=== PATIENT | female | born 1990 | race Caucasian/White ===

== ENCOUNTER 2019-11-24 08:35 | Observation (INO) | payer MEDICARE, OTHER ==
[~2019-11-24] VITALS: Ht 170.2 cm; Wt 65.8 kg
[~2019-11-24 08:35] MED LIST: CYCL10 PO; Ultram50 MG PO; Valium5 MG PO
[2019-11-24 09:44] LABS: BASOPHILS ABSOLUTE AUTO 0.02 K/mm3 (0.00-0.23); BASOPHILS PERCENT AUTO 0 % (0-2); EOSINOPHILS ABSOLUTE AUTO 0.01 K/mm3 (0.00-0.68); EOSINOPHILS PERCENT AUTO 0 % (0-6); Hematocrit 41.1 % (33.0-51.0); Hemoglobin 14.3 g/dL (11.5-16.0); IMMATURE GRAN ABSOLUTE AUTO 0.04 K/mm3 (0.00-0.10); IMMATURE GRAN PERCENT AUTO 0 % (0-1); LYMPHOCYTES ABSOLUTE AUTO 2.49 K/mm3 (0.84-5.20); LYMPHOCYTES PERCENT AUTO 16 % (21-46); MONOCYTES PERCENT AUTO 9 % (4-13); Mean Corpuscular HGB 30.1 pg (26.0-34.0); Mean Corpuscular HGB Conc 34.8 g/dL (31.5-36.5); Mean Corpuscular Volume 87 fL (80-100); Mean Platelet Volume 10.3 fL (9.1-12.4); NEUTROPHILS ABSOLUTE AUTO 11.31 K/mm3 (1.96-9.15); NEUTROPHILS PERCENT AUTO 75 % (41-73); Platelet Count 273 K/mm3 (150-400); RDW Coefficient Variation 12.3 % (11.7-14.2); RDW Standard Deviation 38.9 fL (35.1-46.3); Red Blood Cell Count 4.75 M/mm3 (3.80-5.20); White Blood Cell Count 15.17 K/mm3 (4.00-11.30)
[2019-11-24 10:07] LABS: Acetaminophen, Random <2.0 ug/mL (10.0-30.0); Alanine Aminotransfer (ALT/SGP 44 U/L (12-78); Albumin, Blood 4.4 g/dL (3.4-5.0); Albumin/Globulin Ratio 1.1 (0.8-1.8); Anion Gap 10 mmol/L (6-16); Aspartate Aminotrans (AST/SGOT 141 U/L (12-37); Bilirubin, Total 0.8 mg/dL (0.1-1.0); Blood Urea Nitrogen 9 mg/dL (8-24); Bun/Creatinine Ratio 14.6 (12.0-20.0); CO2, Blood 20 mmol/L (21-32); Calcium, Blood 8.7 mg/dL (8.5-10.1); Chloride, Blood 107 mmol/L (98-108); Creatinine, Blood 0.62 mg/dL (0.40-1.00); Ethanol (Alcohol), Blood, Med <3 mg/dL; Globulin, Blood 3.9 g/dL (2.2-4.0); Glomerular Filtration Rate >60 (60-); Glucose, Blood 80 mg/dL (70-99); Potassium, Blood 3.7 mmol/L (3.5-5.5); Salicylate 3.1 mg/dL (2.8-20.0); Sodium, Blood 137 mmol/L (136-145); Thyroxine (T4) 14.7 ug/dL (4.8-13.9); Total Protein, Blood 8.3 g/dL (6.4-8.2)
[2019-11-24 10:11] LABS: Alk Phos 65 U/L (50-136)
[2019-11-25] MEDS ORDERED: OLAN10 PO (05:56)
[2019-11-25] MEDS ORDERED: HYDPAM50 PO (05:57)
[2019-11-25 08:34] LABS: U Amphetamine Screen Not Detected; U Barbituate Screen Not Detected; U Benzodiazapine Screen Not Detected; U Buprenorphine Screen Not Detected; U Cannabinoids Screen Not Detected; U Cocaine Screen Not Detected; U Methadone Screen Not Detected; U Methamphetamine Screen Not Detected; U Opiates Screen Not Detected; U Oxycodone Screen Not Detected; U Phencyclidine Screen Not Detected; U Propoxyphene Screen Not Detected
[2019-11-25 11:48] LABS: Source, Urine Clean Catch
[2019-11-25 12:07] LABS: Bilirubin, Urine Neg (Neg); Blood, Urine 5+ (Neg); Glucose Qualitative, Urine Neg (Neg); Ketones, Urine 4+ (Neg); Leukocyte Esterase, Urine 1+ (Neg); Nitrite, Urine Neg (Neg); Protein, Urine 2+ (Neg); Urobilinogen, Urine 1+ (Normal); pH, Urine 6.5 (5.0-8.0)
[2019-11-25 12:24] LABS: Appearance, Urine Cloudy (Clear); Color, Urine Amber (P-Yellow)
[2019-11-25 12:28] LABS: Bacteria Many /hpf; Red Blood Cells, Urine TNTC /hpf (0-2); Squamous Epithelial Cells Mod /hpf (Few)
== END 2019-11-25 20:46 ==
LOC: ER 08:35 → EOR 08:36
PROVIDERS: ADMIT Emergency Medicine
DX: F29 Unspecified psychosis not due to a substance or known physiological condition (principal); F17.200 Nicotine dependence, unspecified, uncomplicated
CPT/HCPCS: 36415; 80053; 81001; 81025; 84436; 84443; 85025; 87086; 99285; G0378; G0480; U0002

== ENCOUNTER 2020-01-02 17:47 | Emergency (ER) | payer MEDICARE, OTHER ==
[~2020-01-02] VITALS: Ht 170.2 cm; Wt 61.2 kg
[~2020-01-02 17:47] MED LIST changes: +HYDPAM50 PO; +OLAN10 PO
== END 2020-01-02 19:00 | disposition home or self-care (01) ==
LOC: ER 17:47
DX: Z51.81 Encounter for therapeutic drug level monitoring (principal); Z79.899 Other long term (current) drug therapy; F17.200 Nicotine dependence, unspecified, uncomplicated
CPT/HCPCS: 99283